=== PATIENT | female | born 1935 | race Caucasian/White ===

== ENCOUNTER → 2019-08-09 10:44 | Outpatient (BNVA) | payer MEDICARE, OTHER, SELFPAY | PROVIDERS: Family Provider Family Medicine; PCP Family Medicine; Visit Provider Family Medicine | DX: D72.829 Elevated white blood cell count, unspecified (principal); I10 Essential (primary) hypertension; L57.0 Actinic keratosis; R60.0 Localized edema; E78.2 Mixed hyperlipidemia; Z91.19 Patient's noncompliance with other medical treatment and regimen; M16.11 Unilateral primary osteoarthritis, right hip; M19.072 Primary osteoarthritis, left ankle and foot | CPT/HCPCS: 80053; 85025 ==

== ENCOUNTER 2019-12-23 13:04 | Outpatient (CLI) | payer MEDICARE, OTHER, SELFPAY ==
--- NOTE | 2019-12-23 13:30 | USCV_ITS ---
Clarisa Bridges Age: 84 Gender: F : 1935 Exam Date: 12/23/2019 13:26 Ordering Phys: Dana White MD Technologist: Sully Villarreal Exam Location: [facility] [place] Indication: SWOLLEN LT ANKLE AND FOOT HISTORY: Pain and swelling in Lt foot and ankle PROCEDURES: Venous duplex imaging was performed in only the left lower extremity. The following venous structures were evaluated: common femoral vein, profunda vein, proximal portion of the greater saphenous vein, superficial femoral vein, and the popliteal vein. In addition, the posterior tibial and peroneal trunk were evaluated. Serial compression, augmentation maneuvers, and spectral Doppler flow evaluation were performed. FINDINGS: No DVT seen in any vessel examined Small Leija's cyst Lt pop fossa CONCLUSIONS No evidence of left lower extremity DVT. Small popliteal cyst 1.6 x 0.5cm Demetris Joseph MD (Electronically Signed) Final Date: 23 December 2019 14:41 S
== END 2019-12-23 13:05 | disposition home or self-care (01) ==
LOC: RAD 13:11
PROVIDERS: Family Provider Family Medicine; PCP Family Medicine; Visit Provider Family Medicine
DX: M79.605 Pain in left leg (principal); M79.89 Other specified soft tissue disorders; M71.22 Synovial cyst of popliteal space [Baker], left knee
CPT/HCPCS: 93971

== ENCOUNTER 2020-02-21 11:11 | Outpatient (CLI) | payer MEDICARE, OTHER, SELFPAY ==
--- NOTE | 2020-02-21 11:26 | XRR_ITS ---
PROCEDURE INFORMATION: Exam: XR Left Ankle Exam date and time: 02/21/2020 11:48 AM Age: 84 years old Clinical indication: Ankle and foot; Patient HX: Swelling and pain on medial side of left ankle x 3 months; Additional info: Pain in left ankle joints of L foot TECHNIQUE: Imaging protocol: XR Left ankle. Views: 3 or more views. COMPARISON: CR XR foot LT min 3V* [id number] 02/21/2020 11:37 AM FINDINGS: Bones/joints: Normal. Soft tissues: There is soft tissue swelling predominantly over the medial aspect of the ankle. XR/XR ankle LT min 3V* [id number] IMPRESSION: Soft tissue swelling. No significant bony abnormalities are seen.
--- NOTE | 2020-02-21 11:26 | XRR_ITS ---
PROCEDURE INFORMATION: Exam: XR Left Foot Complete Exam date and time: 02/21/2020 11:42 AM Age: 84 years old Clinical indication: Foot; Patient HX: Swelling and pain on medial side of left ankle x 3 months; Additional info: Pain in left foot TECHNIQUE: Imaging protocol: XR Left foot. Views: 3 or more views. COMPARISON: No relevant prior studies available. FINDINGS: Bones/joints: Moderate degenerative changes are present which are predominantly in the 1st metatarsophalangeal joint and in the interphalangeal joints with narrowing and sclerosis. No fracture, dislocation or other acute bone or joint abnormalities are seen. Soft tissues: Normal. XR/XR foot LT min 3V* [id number] IMPRESSION: Moderate degenerative disease. No acute abnormality.
== END 2020-02-21 11:12 | disposition home or self-care (01) ==
PROVIDERS: PCP Nurse Practitioner; Visit Provider Nurse Practitioner
DX: M25.572 Pain in left ankle and joints of left foot (principal); M79.672 Pain in left foot; M79.89 Other specified soft tissue disorders
CPT/HCPCS: 73610; 73630

== ENCOUNTER → 2021-10-08 09:48 | Outpatient (BNVA) | payer MEDICARE, OTHER, SELFPAY | PROVIDERS: PCP Nurse Practitioner; Visit Provider Family Medicine | DX: I10 Essential (primary) hypertension (principal); E78.5 Hyperlipidemia, unspecified; L57.0 Actinic keratosis; E78.2 Mixed hyperlipidemia; Z76.89 Persons encountering health services in other specified circumstances; R60.0 Localized edema; Z13.1 Encounter for screening for diabetes mellitus | CPT/HCPCS: 80053; 80061 ==

== ENCOUNTER → 2023-04-08 10:00 | Outpatient (BNVA) | payer MEDICARE, OTHER, SELFPAY | PROVIDERS: PCP Family Medicine; Visit Provider Family Medicine | DX: H35.30 Unspecified macular degeneration (principal); H54.62 Unqualified visual loss, left eye, normal vision right eye; I10 Essential (primary) hypertension; E78.2 Mixed hyperlipidemia | CPT/HCPCS: 80053; 80061; 85651; 86140 ==

== ENCOUNTER → 2024-07-05 10:55 | Outpatient (BNVA) | payer MEDICARE, OTHER, SELFPAY | PROVIDERS: PCP Family Medicine; Visit Provider Family Medicine | DX: E78.2 Mixed hyperlipidemia (principal); I10 Essential (primary) hypertension | CPT/HCPCS: 80053; 80061; 85025 ==